=== PATIENT | female | born 1950 | race African-American/Black ===

== ENCOUNTER 2017-06-28 10:12 | Emergency (ER) | payer MEDICARE, MEDICAID ==
[~2017-06-28] VITALS: Ht 167.6 cm; Wt 69.0 kg
[2017-06-28] MEDS ORDERED: IBUPROFEN 800MG TABLET PO ONE (15:30)
[2017-06-28 17:08] VITALS: BP 147/65
== END 2017-06-28 17:10 | disposition home or self-care (01) ==
LOC: ER 10:12
DX: S59.901A Unspecified injury of right elbow, initial encounter (principal); S40.011A Contusion of right shoulder, initial encounter; T14.8XXA Other injury of unspecified body region, initial encounter; E11.9 Type 2 diabetes mellitus without complications; Z88.0 Allergy status to penicillin; W01.0XXA Fall on same level from slipping, tripping and stumbling without subsequent striking against object, initial encounter; Y93.9 Activity, unspecified; Y92.480 Sidewalk as the place of occurrence of the external cause
CPT/HCPCS: 73030; 73080; 99284